=== PATIENT | female | born 1985 | race Caucasian/White ===

== ENCOUNTER 2017-04-09 13:39 | Emergency (ER) | payer MEDICAID ==
[~2017-04-09] VITALS: Ht 165.1 cm; Wt 70.0 kg
[2017-04-09] MEDS ORDERED: ACETAMINOPHEN WITH CODEINE 300/30MG TABLET PO ONE (14:45)
[2017-04-09] MEDS ORDERED: KETOROLAC 60MG/2ML VIAL IM ONE (14:45)
[2017-04-09] MEDS ORDERED: METHOCARBAMOL 500MG TABLET PO ONE (14:45)
[2017-04-09 16:13] LABS: CLARITY URINE CLEAR (CLEAR); COLOR URINE YELLOW (YELLOW); GLUCOSE URINE NEGATIVE (NEGATIVE); KETONES URINE NEGATIVE (NEGATIVE); LEUKOCYTE ESTERASE URINE NEGATIVE (NEGATIVE); NITRITE URINE NEGATIVE (NEGATIVE); OCCULT BLOOD URINE NEGATIVE (NEGATIVE); PH URINE 7.5 (4.5-8.0); PROTEIN URINE NEGATIVE (NEGATIVE); SPECIFIC GRAVITY URINE 1.009 (1.005-1.030); UROBILINOGEN URINE 0.2 E.U./dL (0.2-1.0)
[2017-04-09 16:19] LABS: UCG SCREEN NEGATIVE
[2017-04-09 19:08] VITALS: BP 122/68
== END 2017-04-09 19:15 | disposition home or self-care (01) ==
LOC: ER 14:08
DX: M62.830 Muscle spasm of back (principal)
CPT/HCPCS: 72100; 72190; 81003; 81025; 96372; 99285; J1885; J7030; Z7610